=== PATIENT | female | born 1960 | race Two or more races ===

== ENCOUNTER 2024-09-08 10:02 | Emergency (ER) | payer MEDICAID, OTHER ==
[~2024-09-08] VITALS: Ht 157.5 cm; Wt 68.0 kg
[2024-09-08 10:14] VITALS: O2SAT 97
[2024-09-08] MEDS ORDERED: DEXAMETHASONE 4MG TABLET PO ONE (10:45)
[2024-09-08] MEDS ORDERED: BECL10.6 INH (10:45)
[2024-09-08] MEDS ORDERED: METH4TAB95 MT (10:45)
[2024-09-08] MEDS: DEXAMETHASONE 10 MG/ML VIAL PO NR (12:18)
[2024-09-08 12:19] VITALS: BP 148/75; PULSE 99; RESP 18; TEMP 36.89184; O2SAT 97
== END 2024-09-08 12:20 | disposition home or self-care (01) ==
LOC: ER 10:02
DX: J98.01 Acute bronchospasm (principal); E11.9 Type 2 diabetes mellitus without complications; I10 Essential (primary) hypertension
CPT/HCPCS: 99283; J1100; J8540